=== PATIENT | male | born 1965 | race Caucasian/White ===

== ENCOUNTER 2017-06-05 12:28 | Outpatient (CLI) | payer OTHER ==
[2017-06-05 13:06] LABS: eGFR (African) > 60; eGFR (Non-African) > 60
== END 2017-06-05 12:30 ==
LOC: LAB 12:28
PROVIDERS: ATTEND Physician Assistant
DX: E11.9 Type 2 diabetes mellitus without complications (principal)
CPT/HCPCS: 36415; 80053; 83036

== ENCOUNTER 2018-06-22 20:07 | Emergency (ER) | payer OTHER ==
--- NOTE | 2018-06-22 20:14 | ED Physician Documentation ---
General Adult - HISTORIAN Historian: patient - HPI Stated Complaint: right lower leg laceration Chief Complaint: Laceration/Recheck/Suture Onset: hours (1) Timing: still present Severity: mild Further Comments: yes (He states he fell off a dock loading boat [place] dock and hit his leg with a bolt on the dock. The leg then got a cut. He did not take any meds. He is not up to date on tetanus) Last known Well Code/Unknown Code: Unknown - ROS CONST: no problems - PAST HX Past History: none Immunizations: tetanus Allergies/Adverse Reactions: Allergies Allergy/AdvReac Type Severity Reaction Status Date / Time No Known Drug Allergies Allergy Verified 06/22/18 20:24 - SOCIAL HX Smoking History: non-smoker Alcohol Use: rarely Drug Use: none - FAMILY HX Family History: No - VITAL SIGNS Vital Signs: Vital Signs Temp Pulse Resp BP Pulse Ox 98.5 F 92 H 16 139/86 98 06/22/18 20:10 06/22/18 21:10 06/22/18 21:10 06/22/18 21:10 06/22/18 21:10 - REVIEWED ASSESSMENTS Nursing Assessment Reviewed: Yes Vitals Reviewed: Yes Procedures Wound Location: lower extremity Wound's Depth, Shape: superficial Wound Explored: clean Anesthesia: 2% Lidocaine Wound Repaired With: sutures Suture Size/Type: 4:0 Number of Sutures: 10 ED Results Lab/Radiology - Orders Orders: ED Orders Category Date Time Status Cleanse with NS and Chlorhexid 1T Care 06/22/18 20:18 Active Diph,Pertuss(Acell),Tet Vac/Pf [Adacel] Med 06/22/18 20:20 Discontinued 0.5 ml IM .ONCE ONE Lidocaine 1% 5ml(IM or SUTURE) [Xylocaine] Med 06/22/18 20:18 Discontinued 50 mg IJ NOW ONE General Adult Physical Exam - PHYSICAL EXAM GENERAL APPEARANCE: no distress EENT: eye inspection normal NECK: normal inspection RESPIRATORY: no resp distress, chest non-tender, breath sounds normal CVS: reg rate & rhythm, heart sounds normal, equal pulses, no murmur ABDOMEN: soft, no distension BACK: normal inspection SKIN: warm/dry, normal color, other (right lower leg with a 6 cm approx laceration that has no retained material. ) EXTREMITIES: non-tender, normal range of motion, no evidence of injury, no edema NEURO: oriented X3, CN's nml as tested, motor nml, sensation nml, mood/affect nml, cognition normal Discharge Clincal Impression: Laceration of leg Qualifiers: Encounter type: initial encounter Laterality: right Qualified Code(s): S81.811A - Laceration without foreign body, right lower leg, initial encounter Referrals: Uzma Cristobal MD [Primary Care Provider] - 2 Days Additional Instructions: 1. Bactrim DS Take 1 by mouth BID x 10 days 2. Keep area clean and dry 3. Monitor for symptoms of infection 4. Follow up with PCP in 7-10 days for suture removal 5. Return to ER for any concerns Condition: Stable Disposition: 01 HOME, SELF-CARE Decision to Admit: NO Date of Decison to Admit: 06/22/18 Decision Time: 21:19
[2018-06-22] MEDS ORDERED: Lidocaine 1% 5ml(IM or SUTURE)(PAIN CLINIC) IJ ONE (20:18)
[2018-06-22] MEDS ORDERED: DIPH,PERTUSS(ACELL),TET VAC/PF 0.5 ML DISP.SYRIN IM ONE (20:20)
[2018-06-22] MEDS ORDERED: NEOMYCIN/BACITRACIN/POLYMYXINB 1 EACH OINT.PACK TP ONE (21:00)
[2018-06-22 22:24] VITALS: BP 139/86
== END 2018-06-22 21:35 | disposition home or self-care (01) ==
LOC: ED 20:07
DX: S81.811A Laceration without foreign body, right lower leg, initial encounter (principal); W19.XXXA Unspecified fall, initial encounter; Y92.62 Dock or shipyard as the place of occurrence of the external cause; Y93.9 Activity, unspecified; Y99.9 Unspecified external cause status
CPT/HCPCS: 12002; 90471; 90715

== ENCOUNTER 2019-09-21 09:01 | Outpatient (CLI) | payer OTHER | END 2019-09-21 09:06 | LOC: LAB 09:01 | PROVIDERS: ATTEND Podiatrist Foot & Ankle Surgery | DX: B35.1 Tinea unguium (principal) | CPT/HCPCS: 36415; 80076 ==

== ENCOUNTER 2019-10-29 09:47 | Outpatient (CLI) | payer OTHER | END 2019-10-29 09:52 | LOC: LAB 09:47 | PROVIDERS: ATTEND Podiatrist Foot & Ankle Surgery | DX: B35.1 Tinea unguium (principal) | CPT/HCPCS: 80076 ==